=== PATIENT | female | born 1950 | race African-American/Black ===

== ENCOUNTER 2018-10-18 17:19 | Inpatient (IN) | payer MEDICARE, MEDICAID ==
[~2018-10-18] VITALS: Ht 165.1 cm; Wt 133.0 kg
[~2018-10-18 17:19] MED LIST: IBUP-2030; METH-375
[2018-10-18] MEDS ORDERED: ONDANSETRON HCL 4MG/2ML INJ IV STA (17:30)
[2018-10-18] MEDS ORDERED: SODIUM CHLORIDE 0.9% 1,000 ML IV ONE (17:30)
[2018-10-18] MEDS ORDERED: MORPHINE SULFATE 4 MG/ML CPJ (NOT FOR IM USE) IV STA (17:30)
[2018-10-18 18:38] LABS: CHLORIDE 109 mEq/L (98-107)
[2018-10-18 18:39] LABS: PROTHROMBIN TIME 10.1 sec (9.6-11.0)
[2018-10-18 18:46] LABS: BASOPHILS % 0.4 % (0.0-2.0); EOSINOPHILS % 0.3 % (0.0-5.0); HEMATOCRIT. 33.4 % (36.0-48.0); HEMOGLOBIN. 10.3 g/dL (12.0-16.0); LYMPHOCYTES % 12.3 % (20.0-50.0); MEAN CORPUSCULAR HEMOGLOBIN 21.8 pg (28.0-32.0); MEAN CORPUSCULAR VOLUME 70.9 fL (81.0-99.0); MEAN PLATELET VOLUME 9.9 fl (7.4-10.4); MONOCYTES % 5.5 % (2.0-8.0); NEUTROPHILS % 81.5 % (40.0-76.0); PLATELET 328 x1000/uL (130-400); RED BLOOD CELL COUNT 4.71 mill/uL (4.2-5.4); RED CELL DISTRIBUTION WIDTH 16.7 % (11.6-14.6)
[2018-10-18] MEDS ORDERED: HYDROMORPHONE HCL/PF 2MG/ML CPJ IV NR (19:45)
[2018-10-18] MEDS ORDERED: KETOROLAC 15MG/ML VIAL IV NR (19:45)
[2018-10-18] MEDS ORDERED: CLONIDINE 0.3MG TABLET PO ONE (20:45)
[2018-10-18] MEDS ORDERED: HYDRALAZINE 20MG/ML VIAL IV ONE (21:15)
[2018-10-18] MEDS ORDERED: CEFTRIAXONE 1 G PREMIX 50 ML IV ONE (21:30)
[2018-10-18] MEDS ORDERED: SODIUM CHLORIDE 0.9% 1000ML BAG (SEPSIS BOLUS) IV ONE (21:30)
[2018-10-18 22:18] LABS: CLARITY URINE CLEAR (CLEAR); COLOR URINE YELLOW (YELLOW); KETONES URINE 3+ (NEGATIVE); LEUKOCYTE ESTERASE URINE 1+ (NEGATIVE); NITRITE URINE POSITIVE (NEGATIVE); OCCULT BLOOD URINE NEGATIVE (NEGATIVE); PROTEIN URINE TRACE (NEGATIVE); SPECIFIC GRAVITY URINE 1.022 (1.005-1.030)
[2018-10-18] MEDS ORDERED: LEVOFLOXACIN 500MG PREMIX 100 ML IV NR (23:30)
[2018-10-19] VITALS (11 sets, daily range): BP systolic 93–152; BP diastolic 45–85
[2018-10-19] MEDS ORDERED: MORPHINE SULFATE 2 MG/ML CPJ (NOT FOR IM USE) IV PRN (02:45)
[2018-10-19] MEDS ORDERED: ONDANSETRON HCL 4MG/2ML INJ IV PRN (04:15)
[2018-10-19] MEDS ORDERED: CEFTRIAXONE 1 G PREMIX 50 ML IV SCH ×2 (04:15→22:00)
[2018-10-19] MEDS ORDERED: MORPHINE SULFATE 4 MG/ML CPJ (NOT FOR IM USE) IV PRN (04:15)
[2018-10-19] MEDS ORDERED: CLONIDINE 0.1MG TABLET PO PRN (04:15)
[2018-10-19] MEDS: HYDROMORPHONE HCL/PF 2MG/ML CPJ IV PRN ×2 (04:41→12:17)
[2018-10-19] MEDS: SODIUM CHLORIDE 0.9% 1,000 ML IV SCH ×2 (04:43→18:20)
[2018-10-19 07:58] LABS: HEMATOCRIT 28.3 % (36.0-48.0); HEMOGLOBIN 8.6 g/dL (12.0-16.0); MEAN CORPUSCULAR VOLUME 72.2 fL (81.0-99.0); PLATELET 235 x1000/uL (130-400); RED BLOOD CELL COUNT 3.91 mill/uL (4.2-5.4); RED CELL DISTRIBUTION WIDTH 16.9 % (11.6-14.6)
[2018-10-19] MEDS: FAMOTIDINE 20MG/2ML VIAL IV SCH ×2 (09:00→21:22)
[2018-10-19] MEDS: KETOROLAC 15MG/ML VIAL IV SCH ×3 (09:01→21:22)
[2018-10-19] MEDS: AMLODIPINE 10MG TABLET PO SCH (09:02)
[2018-10-19] MEDS: ENOXAPARIN 40MG/0.4ML SYR SUBCUT SCH ×2 (09:10→21:22)
[2018-10-19] MEDS ORDERED: POTASSIUM CHLORIDE 20MEQ TABLET SR PO NR (10:45)
[2018-10-19] MEDS: PIPERACILLIN/TAZ 3.375G PREMIX 50 ML IV SCH ×2 (14:09→21:23)
[2018-10-19] MEDS ORDERED: LEVOFLOXACIN 500MG PREMIX 100 ML IV SCH (22:00)
[2018-10-20] VITALS (11 sets, daily range): BP systolic 105–163; BP diastolic 60–85
[2018-10-20] MEDS: KETOROLAC 15MG/ML VIAL IV SCH ×4 (04:03→22:19)
[2018-10-20] MEDS: PIPERACILLIN/TAZ 3.375G PREMIX 50 ML IV SCH ×2 (05:44→14:28)
[2018-10-20 06:17] LABS: HEMATOCRIT. 27.7 % (36.0-48.0); HEMOGLOBIN. 8.5 g/dL (12.0-16.0); MEAN CORPUSCULAR HEMOGLOBIN 22.2 pg (28.0-32.0); MEAN CORPUSCULAR VOLUME 72.1 fL (81.0-99.0); MEAN PLATELET VOLUME 10.4 fl (7.4-10.4); PLATELET 164 x1000/uL (130-400); RED BLOOD CELL COUNT 3.85 mill/uL (4.2-5.4); RED CELL DISTRIBUTION WIDTH 17.2 % (11.6-14.6)
[2018-10-20] MEDS: ENOXAPARIN 40MG/0.4ML SYR SUBCUT SCH ×2 (09:16→22:19)
[2018-10-20] MEDS: FAMOTIDINE 20MG/2ML VIAL IV SCH ×2 (09:16→22:19)
[2018-10-20] MEDS: AMLODIPINE 10MG TABLET PO SCH (09:19)
[2018-10-20] MEDS: SODIUM CHLORIDE 0.9% 1,000 ML IV SCH ×2 (09:20→22:20)
[2018-10-20 09:50] LABS: PLATELET ESTIMATE NORMAL
[2018-10-20] MEDS: ACETAMINOPHEN 325MG TABLET PO PRN (16:25)
[2018-10-20] MEDS: LEVOFLOXACIN 750MG PREMIX 150 ML IV SCH (17:21)
[2018-10-21] VITALS (10 sets, daily range): BP systolic 132–169; BP diastolic 73–108
[2018-10-21] MEDS: KETOROLAC 15MG/ML VIAL IV SCH ×3 (03:36→16:01)
[2018-10-21 06:30] LABS: HEMOGLOBIN. 8.2 g/dL (12.0-16.0); MEAN CORPUSCULAR HEMOGLOBIN 22.1 pg (28.0-32.0); MEAN PLATELET VOLUME 10.2 fl (7.4-10.4); PLATELET 163 x1000/uL (130-400); RED BLOOD CELL COUNT 3.72 mill/uL (4.2-5.4); RED CELL DISTRIBUTION WIDTH 17.1 % (11.6-14.6)
[2018-10-21 07:02] LABS: CHLORIDE 112 mEq/L (98-107)
[2018-10-21] MEDS: ENOXAPARIN 40MG/0.4ML SYR SUBCUT SCH (08:22)
[2018-10-21] MEDS: FAMOTIDINE 20MG/2ML VIAL IV SCH (08:25)
[2018-10-21] MEDS: AMLODIPINE 10MG TABLET PO SCH (08:25)
[2018-10-21] MEDS: SODIUM CHLORIDE 0.9% 1,000 ML IV SCH (08:26)
[2018-10-21] MEDS: ACETAMINOPHEN 325MG TABLET PO PRN (09:04)
[2018-10-21] MEDS: LEVOFLOXACIN 750MG PREMIX 150 ML IV SCH (16:01)
[2018-10-21 17:43] LABS: PLATELET ESTIMATE NORMAL
== END 2018-10-21 18:28 | disposition home or self-care (01) | DRG 871 ==
LOC: ER 17:30 → 5EST 22:46 → ENRESERV 10-19 02:15
PROVIDERS: ADMIT Internal Medicine; ATTEND Internal Medicine
DX: A41.89 Other specified sepsis (principal); J18.9 Pneumonia, unspecified organism; N13.6 Pyonephrosis; Z68.42 Body mass index [BMI] 45.0-49.9, adult; I10 Essential (primary) hypertension; E87.8 Other disorders of electrolyte and fluid balance, not elsewhere classified; J45.909 Unspecified asthma, uncomplicated; E66.01 Morbid (severe) obesity due to excess calories; D64.9 Anemia, unspecified; E66.9 Obesity, unspecified; Z88.2 Allergy status to sulfonamides; Z90.49 Acquired absence of other specified parts of digestive tract; Z91.018 Allergy to other foods; Z79.899 Other long term (current) drug therapy; Z71.3 Dietary counseling and surveillance
CPT/HCPCS: 36415; 71045; 74176; 76700; 80048; 83605; 83880; 84145; 84484; 85027; 87077; 87186; 99285; J0360; J0696; J1170; J1650; J1885; J1956; J2270; J2405; J2543; J3490; J7030

== ENCOUNTER 2019-01-12 11:21 | Emergency (ER) | payer MEDICARE, MEDICAID ==
[~2019-01-12] VITALS: Ht 165.1 cm; Wt 130.0 kg
[2019-01-12] MEDS ORDERED: SODIUM CHLORIDE 0.9% 1,000 ML IV ONE (12:14)
[2019-01-12] MEDS: MORPHINE SULFATE 4 MG/ML CPJ (NOT FOR IM USE) IV STA ×2 (12:14→15:02)
[2019-01-12] MEDS ORDERED: ONDANSETRON HCL 4MG/2ML INJ IV STA (12:14)
[2019-01-12] MEDS ORDERED: FAMOTIDINE 20MG/2ML VIAL IV STA (12:14)
[2019-01-12 12:57] LABS: BASOPHILS % 0.6 % (0.0-2.0); EOSINOPHILS % 1.9 % (0.0-5.0); HEMATOCRIT. 28.2 % (36.0-48.0); HEMOGLOBIN. 8.5 g/dL (12.0-16.0); LYMPHOCYTES % 22.8 % (20.0-50.0); MEAN CORPUSCULAR HEMOGLOBIN 20.6 pg (28.0-32.0); MEAN CORPUSCULAR VOLUME 68.2 fL (81.0-99.0); MEAN PLATELET VOLUME 8.8 fl (7.4-10.4); MONOCYTES % 6.9 % (2.0-8.0); NEUTROPHILS % 67.8 % (40.0-76.0); PLATELET 329 x1000/uL (130-400); RED BLOOD CELL COUNT 4.14 mill/uL (4.2-5.4); RED CELL DISTRIBUTION WIDTH 18.8 % (11.6-14.6)
[2019-01-12 13:04] LABS: CHLORIDE 111 mEq/L (98-107)
[2019-01-12 13:05] LABS: PROTHROMBIN TIME 10.4 sec (9.6-11.0)
[2019-01-12 13:35] LABS: PLATELET ESTIMATE NORMAL
[2019-01-12] MEDS ORDERED: IOHEXOL-300 100 ML BOTTLE ONE (14:18)
[2019-01-12 15:32] VITALS: BP 160/88
== END 2019-01-12 15:36 | disposition home or self-care (01) ==
LOC: ER 11:43
DX: R10.13 Epigastric pain (principal); D64.9 Anemia, unspecified; J45.909 Unspecified asthma, uncomplicated; I10 Essential (primary) hypertension; Z90.49 Acquired absence of other specified parts of digestive tract; Z88.2 Allergy status to sulfonamides; Z88.5 Allergy status to narcotic agent
CPT/HCPCS: 36415; 74177; 80053; 83605; 83690; 85025; 85610; 96374; 96375; 99284; J2270; J2405; J3490; J7030; Q9967